=== PATIENT | female | born 1995 | race African-American/Black ===

== ENCOUNTER 2018-06-13 19:51 | Emergency (ER) | payer SELFPAY ==
[2018-06-13] MEDS ORDERED: Ibuprofen 200 MG TAB ONE (20:48)
== END 2018-06-13 21:08 | disposition home or self-care (01) ==
LOC: ERS 19:51
DX: J06.9 Acute upper respiratory infection, unspecified (principal)
CPT/HCPCS: 87081; 87430; 87804; 99283

== ENCOUNTER 2018-07-17 12:11 | Emergency (ER) | payer SELFPAY ==
--- NOTE | 2018-07-17 14:39 | RAD ---
PA AND LATERAL VIEWS OF CHEST: HISTORY: Chest pain. FINDINGS: The cardiomediastinum is normal. The lungs are expanded and clear. The bony thorax is normal. IMPRESSION: Normal exam. POS: [facility]
== END 2018-07-17 15:39 | disposition home or self-care (01) ==
LOC: ERS 12:11
DX: B34.9 Viral infection, unspecified (principal)
CPT/HCPCS: 71046; 87081; 87430; 87804; 93005

== ENCOUNTER 2018-10-31 15:00 | Emergency (ER) | payer MEDICAID, OTHER ==
--- NOTE | 2018-10-31 15:50 | RAD ---
Exam:Right hand 3 views HISTORY: Pain. Hand got caught in car door COMPARISON: None FINDINGS: Joint spaces are preserved. No fracture. No cortical irregularity or periosteal reactive IMPRESSION: No fracture.
== END 2018-10-31 16:30 | disposition home or self-care (01) ==
LOC: ERS 15:00
DX: S63.614A Unspecified sprain of right ring finger, initial encounter (principal); W23.0XXA Caught, crushed, jammed, or pinched between moving objects, initial encounter